=== PATIENT | female | born 1950 | race Caucasian/White ===

== ENCOUNTER 2018-11-22 06:48 | Day surgery (SDC) | payer OTHER ==
[~2018-11-22] VITALS: Ht 157.5 cm; Wt 63.6 kg
[2018-11-22 07:48] VITALS: Ht 157.5 cm; Wt 63.6 kg
[2018-11-22] MEDS ORDERED: LEVOTHYROXINE (07:52)
[2018-11-22 08:10] VITALS: BP 145/67; PULSE 57; RESP 12
[2018-11-22] MEDS ORDERED: PROPOFOL 20 ML ONE (08:54)
[2018-11-22] MEDS ORDERED: FENTAnyl 50 MCG/ML VIAL ONE (08:54)
--- NOTE | 2018-11-22 09:00 | PREAC ---
Date/Time of Note Date/Time of Note DATE: 11/22/18 TIME: 08:59 Anesthesia Eval and Record Evaluation Time Pre-Procedure Interview DATE: 11/22/18 TIME: 08:59 Age 68 Sex female NPO: 8 hrs Preoperative diagnosis screening Planned procedure colonoscopy screening Past Medical History Past Medical History: Includes Endo: Hypothyroid Surgery & Anesthesia Issues No known issue Meds Anticoagulation: No Beta Shreya within 24 hr: No Reason Beta Shreya not given: Pt. not on B-Shreya Reported Medications [Levothyroxine] No Conflict Check 11/22/18 Meds reviewed: Yes Allergies Coded Allergies: No Known Allergy (Unverified , 11/22/18) Allergies Reviewed: Yes Labs/Studies Labs Reviewed: Reviewed by anesthesiologist test: N/A Pre-procedure Exam Last vitals Vital Signs Date Temp Pulse Resp B/P (MAP) Pulse Ox O2 O2 Flow FiO2 Time Delivery Rate 11/22/18 97.5 57 12 145/67 99 Room Air 08:10 (93) Airway: Adequate mouth opening, Adequate thyromental dist Mallampati: Mallampati IV Teeth: Normal (missing multiple molars) Lung: Normal Heart: Normal ASA Physical Status ASA physical status: 2 Emergency: None Planned Anesthetic General/MAC: MAC Planned Pain Management Parenteral pain med Pre-operative Attestations Prior to commencing anesthesia and surgery, the patient was re-evaluated, there was verification of: *The patient's identity *The results of appropriate recent lab work and preoperative vital signs *The above evaluation not changing prior to induction *Anesthetic plan, risk benefits, alternative and complications discussed with patient/family; questions answered; patient/family understands, accepts and wishes to proceed. NAVA PATEL CRNA November 22, 2018 09:00
--- NOTE | 2018-11-22 09:21 | HPN ---
Date/Time of Note Date/Time of Note DATE: 11/22/18 TIME: 09:21 Interval H&P Admission Note Pt. seen H&P reviewed: No system changes TRISTAN DOUGLASS November 22, 2018 09:21
[2018-11-22 09:26] VITALS: BP 136/63; PULSE 52; RESP 17
[2018-11-22 09:31] VITALS: BP 137/69; PULSE 52; RESP 21
[2018-11-22 09:36] VITALS: BP 136/63; PULSE 48; RESP 22
[2018-11-22 09:41] VITALS: BP 145/58; PULSE 48; RESP 19
[2018-11-22 09:55] VITALS: BP 136/68; PULSE 56; RESP 17
--- NOTE | 2018-11-23 09:37 | PAC ---
Date/Time of Note Date/Time of Note DATE: 11/23/18 TIME: 09:36 Post-Anesthesia Notes Post-Anesthesia Note Last documented vital signs Vital Signs Date Temp Pulse Resp B/P (MAP) Pulse Ox O2 O2 Flow FiO2 Time Delivery Rate 11/22/18 98.9 56 17 136/68 96 Room Air 09:55 (90) 11/22/18 98.9 09:26 Activity: WNL Respiratory function: WNL Cardiovascular function: WNL Mental status: Baseline Pain reasonably controlled: Yes Hydration appropriate: Yes Nausea/Vomiting absent: No BELA HOWARD MD November 23, 2018 09:37
== END 2018-11-22 10:11 | disposition home or self-care (01) ==
LOC: GIL 06:48
PROVIDERS: ATTEND Internal Medicine Gastroenterology
DX: Z12.11 Encounter for screening for malignant neoplasm of colon (principal); K64.8 Other hemorrhoids; E07.9 Disorder of thyroid, unspecified; R10.31 Right lower quadrant pain
CPT/HCPCS: 45378; J3010; Z7610